=== PATIENT | female | born 1945 | race Caucasian/White ===

== ENCOUNTER 2016-10-04 08:30 | Outpatient (CLI) | payer MEDICARE, BC ==
[2016-10-04 12:30] LABS: #Basophils 0.1 thou/uL (0.0-0.2); #Eosinphils 0.1 thou/uL (0.0-0.7); #Lymphocytes 2.8 thou/uL (1.20-3.40); #Monocytes 0.5 thou/uL (0.11-0.59); #Neutrophils 2.8 thou/uL (1.40-6.50); %Basophils 1.1 % (0.0-1.0); %Eosinophils 1.8 % (0.0-10.0); %Lymphocytes 44.7 % (21.0-51.0); %Monocytes 7.7 % (0.0-10.0); %Neutrophils 44.8 % (42.0-75.0); Hemoglobin 12.9 g/dL (12.0-16.0); Mean Corpuscular HGB CONC 31.3 g/dL (32.0-36.0); Mean Corpuscular Hemoglobin 27.6 pg (27.0-31.0); Mean Corpuscular Volume 88.2 fl (81.0-99.0); Mean Platelet Volume 8.1 fL (7.4-10.4); Platelet Count 226 thou/uL (130-400); RBC Distribution Width 12.9 % (11.5-14.5); Red Blood Cell (RBC) Count 4.66 mill/uL (4.20-5.40); White Blood Cell (WBC) Count 6.3 thou/uL (4.8-10.8)
[2016-10-04 12:40] LABS: ALT (SGPT) 8 U/L (8-55); AST (SGOT) 17 U/L (5-34); Albumin 4.1 g/dL (3.4-4.8); Alkaline Phosphatase 94 U/L (40-150); Anion Gap 16 mmol/L (10-20); BUN (Urea Nitrogen) 19 mg/dL (9.8-20.1); Bilirubin, Direct 0.2 mg/dL (0.1-0.3); Bilirubin, Total 0.4 mg/dL (0.2-1.2); Calc. Creatinine Clearance 0 mL/min (70-130); Calcium 9.7 mg/dL (7.8-10.44); Carbon Dioxide 27 mmol/L (23-31); Cardiac Risk 3.4 (Less than 4.5); Chloride 105 mmol/L (98-107); Cholesterol 185 mg/dl (< 200 Desired); Estimated GFR-MDRD 59; Glucose 79 mg/dL (83-110); HDL Cholesterol 55 mg/dL (>60 Neg Risk); LDL Cholesterol, Calculated 112 mg/dL; Potassium 4.5 mmol/L (3.5-5.1); Protein, Total 6.8 g/dL (6.0-8.3); Sodium 143 mmol/L (136-145); Triglycerides 89 mg/dL (Less than 150)
[2016-10-04 13:08] LABS: Bilirubin Negative (Negative); Blood, Urine Trace (Negative); Clarity Clear (Clear); Glucose, Urine (Dipstick) Negative (Negative); Leukocyte Negative (Negative); Nitrite Negative (Negative); Protein, Urine (Dipstick) Negative (Neg-Trace); Urobilinogen 0.2 mg/dL (0.2-1.0); pH, Urine 5.5 (5.0-9.0)
[2016-10-04 13:12] LABS: Hemoglobin A1c 5.3 % (4.0-6.0)
[2016-10-04 13:55] LABS: Bacteria/HPF None Seen HPF (None Seen); RBC/HPF 0-3 HPF (0-3); Squamous Epithelial 0-3 HPF (0-3); WBC/HPF None Seen HPF (0-3)
== END 2016-10-04 08:31 | disposition home or self-care (01) ==
LOC: NAVSJIPCSP 08:30
PROVIDERS: ATTEND Family Medicine
DX: E78.5 Hyperlipidemia, unspecified (principal); I10 Essential (primary) hypertension; Z79.899 Other long term (current) drug therapy
CPT/HCPCS: 36415; 80048; 80061; 80076; 81003; 81015; 83036; 84443; 85025